=== PATIENT | female | born 1960 | race Caucasian/White ===

== ENCOUNTER 2022-02-05 20:57 | Emergency (ER) | payer MEDICAID, SELFPAY ==
[2022-02-05 22:18] VITALS: BP 126/93; PULSE 80; RESP 15; O2SAT 97
--- NOTE | 2022-02-05 23:10 | W.ED.GENAD ---
Discharge Plan Disposition Patient Disposition: Home Condition: Improving Discharge Details Clinical Impression: Abscess of back Primary Care Provider: Rupal,Local ED Provider: Miranda Hogan Home Meds and New Rx's Prescriptions: New sulfamethoxazole-trimethoprim [Bactrim DS] 800-160 mg tablet 2 tab PO BID 7 Days Qty: 28 0RF Discharge Instructions Instructions: Abscess (ED) Additional Instructions: You had incision and drainage of an abscess in your upper back this evening. This may have been a cyst that became secondarily infected with bacteria. A prescription for antibiotics has been sent electronically to your pharmacy to take as directed until finished. Alternate tylenol and motrin as needed and directed for pain. Drink plenty of fluids and get plenty of rest. Do not remove the packing and keep the area covered, clean and dry. Return to the emergency department in 2 days for wound check with packing removal or change. Follow-up with general surgery for reevaluation and consideration for cyst excision if applicable for definitive treatment. Referrals: Tila Fowler MD [ [facility] STAFF PHYSICIAN] - Discharge Data Discharge Physician: Miranda Hogan Medical Decision Making 61-year-old female presents with tender lump to her left upper back for the past 2 weeks. Vitals within normal limits. Pt appears comfortable and nontoxic. She has a 3 x 3 cm erythematous tender minimally fluctuant mass noted to the left of midline in the upper thoracic back. There is no drainage or surrounding crepitus. Suspect abscess. Will perform bedside ultrasound and likely I&D. Bedside ultrasound revealed fluid collection with loculations. The area was anesthetized with lidocaine 1% with epinephrine. Incision made in center of fluctuance with a #11 blade. Approximately 5 cc of purulent material expressed. Patient felt significantly better after drainage. Area was irrigated with normal saline. Able to pack area with a small amount of 1/4inch wide iodoform gauze as it is likely suspected to be the capsule of the cyst that became secondarily infected. Patient was given a dose of Bactrim here, and prescription sent electronically to her pharmacy. She was advised to return to the emergency department in 2 days for wound check with packing removal or change. She was also advised that she may need follow-up with general surgery for definitive cyst excision if this is applicable. Medical Records Medical records reviewed: Yes I reviewed the patient's medical records. HPI General Mode of arrival: ambulatory. Date/Time Provider Initiated Documentation: 02/05/22 21:31. Limitations to Documentation: no limitations. Information obtained by: patient. HPI Narrative: Patient is a 61-year-old female who presents with a lump noted on her back 2 weeks ago which has now developed pain in the area 1 week ago and redness that she noted this morning. She denies any known fever. She states she has been using black salve over the area to help with drainage. Related Data Home Medications Medication Instructions Recorded Confirmed sulfamethoxazole 800 2 tab PO BID 7 days #28 tabs 02/05/22 mg-trimethoprim 160 mg tablet (Bactrim DS) Previous Rx's Medication Instructions Recorded sulfamethoxazole 800 2 tab PO BID 7 days #28 tabs 02/05/22 mg-trimethoprim 160 mg tablet (Bactrim DS) General Stated Complaint: GenMedical MARK: 4 Review of Systems All systems reviewed & are unremarkable except as noted in HPI and below Constitutional Constitutional: Reports as per HPI, Denies chills and Denies fever(s) Eyes Eyes: Denies blurry vision ENT Ears, Nose, Mouth, and Throat: Denies dizziness, Denies sore throat and Denies throat swelling Cardiovascular Cardiovascular: Denies chest pain and Denies dyspnea Respiratory Respiratory: Denies cough and Denies dyspnea Gastrointestinal Gastrointestinal: Denies abdominal pain, Denies diarrhea and Denies vomiting Genitourinary Genitourinary: Denies hematuria and Denies dysuria Musculoskeletal Musculoskeletal: Denies back pain and Denies numbness Integumentary/Breasts Skin/Breast: Reports lesions and Denies rash Neurologic Neurologic: Denies dizziness, Denies localized weakness and Denies numbness Allergic/Immunologic Allergic/Immunologic: Denies throat swelling PFSH All Active Problems (Updated 02/05/22 @ 23:57 by Miranda Hogan DO) Abscess of back (Acute) Social History Smoking/Tobacco Use Status: Never Smoking risk assessment performed?: Yes Alcohol Intake: current Drug use: Never Substance use type: does not use Do you feel safe at home: Yes Do you feel safe in your relationship?: Yes Exam Const General: cooperative, healthy appearing and no acute distress HENMT Head: normal to inspection Mouth: oral mucosae normal Eyes General: appearance normal, both eyes and all related structures Neck Neck: normal visual inspection Resp Effort & Inspection: normal respiratory effort and able to speak in complete sentences Cardio Rate: regular rate Back/Spine/Pelvis Back/spine/pelvis image: 1. 3 x 3 cm erythematous fluctuant mass noted just to the left of midline and upper thoracic back and just below top border of scapula. There is no obvious drainage. There is no surrounding crepitus. Skin General skin exam: no rashes or lesions noted Neuro General: patient alert, patient awake and patient oriented x3 Motor: muscle tone normal throughout Extrem General: normal to inspection and full ROM Psych Appearance: grossly normal Affect: normal affect Course Vital Signs Vital signs: Vital Signs Pulse 80 02/05/22 22:18 Respiratory Rate 15 02/05/22 22:18 Blood Pressure 126/93 H 02/05/22 22:18 Pulse Oximetry 97 02/05/22 22:18 Pulse 80 02/05/22 22:18 Respiratory Rate 15 02/05/22 22:18 Blood Pressure 126/93 H 02/05/22 22:18 Blood Pressure Position Sitting 02/05/22 22:18 Pulse Oximetry 97 02/05/22 22:18 Oxygen Delivery Method Room Air 02/05/22 22:18 Oxygen Flow Rate 0 02/05/22 22:18 Pain Level 5 02/05/22 22:18 Procedures Abscess I/D Site: Back Side (if applicable): Left Local Anesthetic: Lidocaine 1% and With Epi Amount of anesthesia used (mL): 9 Technique: Incised with #11 Blade Amount of fluid expressed (mL): 10 Irrigation: Yes Packing used?: Iodoform
[2022-02-06 00:10] VITALS: TEMP 36.6
[2022-02-06 00:25] VITALS: PULSE 87; RESP 16; TEMP 36.6; O2SAT 98
[2022-02-06] MEDS: Sulfameth/Trimeth DS TAB 2 TAB PO (00:30)
[2022-02-06] MEDS: Ibuprofen 600 MG TAB PO (00:30)
[2022-02-06] MEDS: Sulfameth/Trimeth DS, 2 TABS/BTL 1 TAB PO (00:31)
== END 2022-02-06 00:34 | disposition home or self-care (01) ==
PROVIDERS: Emergency Provider Physician Assistant
DX: L02.818 Cutaneous abscess of other sites (principal)
CPT/HCPCS: 10061

== ENCOUNTER 2022-02-07 13:11 | Emergency (ER) | payer MEDICAID, SELFPAY ==
[2022-02-07 13:19] VITALS: BP 145/74; PULSE 86; RESP 18; TEMP 37; O2SAT 94
--- NOTE | 2022-02-07 13:46 | ED.GENADUL_ITS ---
Discharge Plan Disposition Patient Disposition: Home Condition: Stable Discharge Details Clinical Impression: Abscess of back Primary Care Provider: Rupal,Local ED Provider: Nazia Villalta Discharge Instructions Instructions: Abscess (ED) Additional Instructions: Warm compresses Follow-up with surgery should he have recurrence of symptoms Complete your antibiotic course Return spreading redness, fever, worsening pain Wash with warm soapy water at least once daily You may massage the wound when you exit the shower and place a gauze dressing Referrals: Virgil Guzman MD [ [facility] STAFF PHYSICIAN] - Discharge Data Discharge Date/Time-TO BE ENTERED AT DEPARTURE: 02/07/22 13:57 Medical Decision Making 62-year-old female presents for abscess recheck and packing removal Wound draining well, wick removed without incident Will continue on antibiotics Referral to surgery in the outpatient setting Return precautions reviewed and patient expressed understanding Medical Records Medical records reviewed: Yes I reviewed the patient's medical records. HPI General Date/Time Provider Initiated Documentation: 02/07/22 13:36 . HPI Narrative: This 62-year-old female is otherwise reportedly healthy presents with cyst on upper back measuring 2 days ago. She was asked to return for reevaluation which is why she presents. Reports decreased pain. Denies any fever or chills. Take antibiotic as prescribed General Stated Complaint: Cellulitis MARK: 4 Review of Systems Narrative: Review of systems obtained x3 and negative aside from medication HPI PFSH All Active Problems (Updated 02/07/22 @ 13:47 by BEAU Ivan) Abscess of back (Acute) Social History Smoking/Tobacco Use Status: Current every day Tobacco Type: cigarettes Smoking risk assessment performed?: Yes Alcohol Intake: never Drug use: Never Substance use type: does not use Do you feel safe at home: Yes Do you feel safe in your relationship?: Yes Exam Skin Full body images: 1. Site of abscess drainage, no fluctuance, site draining purulent material, mild surrounding erythema, approximately half an inch Course Vital Signs Vital signs: Vital Signs Temperature 37.0 C 02/07/22 13:19 Pulse 86 02/07/22 13:19 Respiratory Rate 18 02/07/22 13:19 Blood Pressure 145/74 H 02/07/22 13:19 Pulse Oximetry 94 02/07/22 13:19 Temperature 37.0 C 02/07/22 13:19 Temperature Source Temporal Artery Scan 02/07/22 13:19 Pulse 86 02/07/22 13:19 Respiratory Rate 18 02/07/22 13:19 Respiratory Effort Non-Labored 02/07/22 13:22 Blood Pressure 145/74 H 02/07/22 13:19 Blood Pressure Position Sitting 02/07/22 13:19 Pulse Oximetry 94 02/07/22 13:19
== END 2022-02-07 13:57 | disposition home or self-care (01) ==
PROVIDERS: Emergency Provider Physician Assistant
DX: L02.212 Cutaneous abscess of back [any part, except buttock and flank] (principal)

== ENCOUNTER 2022-03-22 13:27 | Outpatient (REF) | payer MEDICAID, SELFPAY ==
--- OUTSIDE RECORDS SUMMARY | 2022-03-22 13:29 | XMS_ITS | CCD ---
:1960 Author Care Team Providers Name Role Phone LUIS PAYNE Attending Physician Unavailable LUIS PAYNE Rounding (Secondary) Physician Unavailab le Vital Signs Unknown or Not Available. Allergies Unknown or Not Available. Procedures Unknown or Not Available. History of Immunizations Unknown or Not Available. Problems Unknown or Not Available. Results Unknown or Not Available. Active Medications Unknown or Not Available. Medications Administered During Visit Unknown or Not Available. Encounters Encounter Diagnosis Diagnosis Code Start Date Pain in left hip [id number] 10/29/2021 Social History Unknown or Not Available. Patient Decision Aids Unknown or Not Available. Discharge Instructions You were admitted to [facility] on 10/29/2021 08:53 with a principal diagnosis of Pain in left hip You were discharged from [facility] on 10/29/2021 13:51 Should you have any questions prior to d ischarge, please contact a member of your healthcare team. If you have left the spital and have any questions, please contact your primary care physician. Chief Complaint and Reason For Visit Unknown or Not Available. Function Status Unknown or Not Available. Plan of Care Unknown or Not Available. Referral/Transition of Care Unknown or Not Available.
== END 2022-03-22 13:28 | disposition home or self-care (01) ==
LOC: LBN 13:27
PROVIDERS: Visit Provider Physician Assistant
DX: N39.0 Urinary tract infection, site not specified (principal)
CPT/HCPCS: 87086

== ENCOUNTER 2022-05-22 02:22 | Outpatient (CLI) | payer MEDICAID, SELFPAY ==
[2022-05-22 09:52] LABS: CREATININE 0.8 mg/dL (0.55-1.02); Estimated GFR 82.23 (mL/min/1.73m2)
== END 2022-05-22 02:23 | disposition home or self-care (01) ==
PROVIDERS: Visit Provider Occupational Therapist
DX: I67.1 Cerebral aneurysm, nonruptured (principal)
CPT/HCPCS: 36415; 82565

== ENCOUNTER 2022-05-22 13:19 | Outpatient (REF) | payer MEDICAID, SELFPAY ==
[2022-05-26 10:10] LABS: Anabasine <2.0 ng/mL (<2.0); Cotinine <5.0 ng/mL (<5.0); Nicotine <5.0 ng/mL (<5.0); Nornicotine <2.0 ng/mL (<2.0)
== END 2022-05-22 13:20 | disposition home or self-care (01) ==
LOC: LBN 13:19
PROVIDERS: Visit Provider Orthopaedic Surgery
DX: Z87.891 Personal history of nicotine dependence (principal)
CPT/HCPCS: 80323

== ENCOUNTER 2022-10-21 19:21 | Emergency (ER) | payer MEDICAID, SELFPAY ==
[2022-10-21 19:38] VITALS: BP 154/102; PULSE 94; RESP 20; TEMP 36.8; O2SAT 99
--- NOTE | 2022-10-21 20:00 | DI.CT_ITS ---
Exam(s) CT LUMBAR SPINE WO EXAM: CT LUMBAR SPINE WO CLINICAL HISTORY: left lower back pain, eval for disc pathology. TECHNIQUE: Imaging Protocol: Axial computed tomography images with coronal and sagittal reformatted images were created and reviewed COMPARISON: No exams were available for comparison FINDINGS: Bones: The last intervertebral disc space is designated the L5/S1 level for the numbering purpose of this examination. The vertebral body heights are well maintained. Alignment is satisfactory. No fracture is seen. No lytic or blastic lesion. T12-L1: No disc herniations or bulges are present. L1-2: No disc herniations or bulges are present. L2-3: No disc herniations or bulges are present. L3-4: Mild disc bulging L4-5: Mild loss of disc height. Concentric disc bulging. Facet degenerative changes cause mild spo ndylolisthesis. There is ligamentous hypertrophy which combines with the disc bulging to produce mod erate to severe central canal stenosis and bilateral neural foraminal narrowing. L5-S1: No disc herniations or bulges are present. The visualized SI joints and sacrum are will maintained. Left hip prosthesis. Moderate degenerative changes of right hip. Soft Tissues: The paraspinal soft tissues are unremarkable. Large amount of stool seen in the rect um. At aorta normal in diameter. Mild atherosclerotic changes. IMPRESSION: Degenerative disc changes and facet degenerative changes cause mild spondylo listhesis at L4-5 as wel l as moderate to severe central canal stenosis and bilateral neural foraminal narrowing. RADIATION DOSE DELIVERED: 919.02mGy.cm Total DLP DATA REPOSITORY: All CT scans at this facility are submitted to the National Radiology Data Registry (NRDR) Dose Index Registry (DIR) with the [employer] (A[employer]). RADIATION OPTIMIZATION: All CT scans at this facility use at least one of these dose optimization te chniques: automated exposure control; mA and/or kV adjustment per patient size (includes targeted exa ms where dose is matched to clinical indication); or iterative reconstruction.
--- NOTE | 2022-10-21 21:35 | ED.GENADUL_ITS ---
Discharge Plan Disposition Patient Disposition: Home Condition: Good Discharge Details Clinical Impression: Radiculopathy Primary Care Provider: Unknown,Unknown ED Provider: Steve Banks Home Meds and New Rx's Prescriptions: New lidocaine [Lidoderm] 5 % adhesive patch,medicated 1 patch Topical Q24H Qty: 15 0RF prednisone 50 mg tablet 50 mg PO DAILY Qty: 5 0RF No Action ascorbate calcium (vitamin C) 500 mg tablet 500 mg PO BID bergamot extract 500 mg capsule 2 mg PO DAILY Discharge Instructions Instructions: Lumbar Radiculopathy (ED) Additional Instructions: At this time your CAT scan shows evidence of disc breakdown, and slight narrowing of the space around your nerves. Please take the steroid as directed. Please take Tylenol and Motrin as needed for pain. If you notice any worsening of your symptoms, or any new symptoms such as vomiting, diarrhea, fever, chills, shortness of breath, chest pain, numbness, weakness, or fainting , please return immediately to the emergency department for reevaluation. Please follow up with your primary care provider as soon as possible for reassessment and reevaluation. As always, it was a pleasure participating in your medical care today. Medical Decision Making 62-year-old female with a past medical history of hip replacement who presents today for evaluation of left lower back pain for the last 3 weeks. She suspects that it was initially brought on after she did some extra work or heavy lifting outside. She denies falls or trauma. She denies fever and chills. She states that the pain is in her left lower back, and that radiates down her leg. It is worse with bending. Improved by rest. She has been slower in general secondary to her previous hip replacement, but this is different. She denies f ever or chills. Patient denies any saddle anesthesia, numbness or tingling in the groin, change in sensation when wiping. Patient denies any change in sensation during sexual intercourse, bowel or bladder incontinence, leakage, or retention. Patient denies any weakness in the lower extremities, atypical falls or imbalance. Exam demonstrates well-appearing female. Hip and back show no redness warmth or abnormality otherwise. No midline cervical thoracic lumbar spine tenderness. Normal sensation throughout, no saddle anesthesia. No bowel or bladder incontinence. Symptoms appear clinically inconsistent with cauda equina syndrome. Symptoms appear clinically concerning for mild radiculopathy versus sciatica versus piriformis syndrome. We will get a CT scan to evaluate for disc pathology, monitor closely and reassess. 10:[address] imaging has returned, there is moderate to severe central canal stenosis at L4-L5 and moderate foraminal stenosis as well as some constipation. No evidence of cauda equina syndrome clinically. Patient otherwise feels well. Stable for discharge. We will do a prednisone burst, and recommend continued NSAIDs and Lidoderm patch. Discussed red flags for which to return. I have extensively reviewed the treatment plan and discharge instructions with the patient. I have addressed all patient concerns at this time. The patient was made aware of what symptoms to monitor for that would warrant a return to the emergency department. Discussed the plan with the patient, they demonstrate verbal understanding and agreement with our assessment and plan at this time. The documentation in this chart was dictated using eMagin dictation software. Please excuse any dictation errors. FINDINGS: Bones/joints: No acute fracture. Mild anterolisthesis of L4 on L5 is presumed degenerative Uncovering of the intervertebral disc at L4-L5 combines with facet hypertrophic changes producing moderate to severe central canal stenosis and moderate foraminal stenosis Left hip arthroplasty noted. Moderate degenerative changes in the right hip Soft tissues: Unremarkable. Large stool in the rectal vault IMPRESSION: Moderate to severe central canal stenosis at L4-L5 and moderate foraminal stenosis Question constipation Thank you for allowing us to participate in the care of your patient. HPI General Date/Time Provider Initiated Documentation: 10/21/22 20:11 . HPI Narrative: 62-year-old female with a past medical history of hip replacement who presents today for evaluation of left lower back pain for the last 3 weeks. She suspects that it was initially brought on after she did some extra work or heavy lifting outside. She denies falls or trauma. She denies fever and chills. She states that the pain is in her left lower back, and that radiates down her leg. It is worse with bending. Improved by rest. She has been slower in general secondary to her previous hip replacement, but this is different. She denies fever or chills. Patient denies any saddle anesthesia, numbness or tingling in the groin, change in sensation when wiping. Patient denies any change in sensation during sexual intercourse, bowel or bladder incontinence, leakage, or retention. Patient denies any weakness in the lower extremities, atypical falls or imbalance. Related Data Home Medications Medication Instructions Recorded Confirmed ascorbate calcium (vitamin C) 500 500 mg PO BID 02/26/22 10/21/22 mg tablet bergamot extract 500 mg capsule 2 mg PO DAILY 02/26/22 10/21/22 lidocaine 5 % topical patch 1 patch topical Q24H #15 ea 10/21/22 (Lidoderm) prednisone 50 mg tablet 50 mg PO DAILY #5 tabs 10/21/22 Previous Rx's Medication Instructions Recorded lidocaine 5 % topical patch 1 patch topical Q24H #15 ea 10/21/22 (Lidoderm) prednisone 50 mg tablet 50 mg PO DAILY #5 tabs 10/21/22 Allergies Allergy/AdvReac Type Severity Reaction Status Date / Time codeine Allergy Intermediate itchy rash Verified 10/21/22 19:42 oxycodone Allergy Intermediate Uncoded 10/21/22 19:42 General Stated Complaint: Orthopedic MARK: 4 Review of Systems All systems reviewed & are unremarkable except as noted in HPI and below PFSH All Active Problems (Updated 10/21/22 @ 22:00 by Steve Banks DO) Radiculopathy (Acute) Social History Smoking/Tobacco Use Status: Current every day Tobacco Type: cigarettes Smoking risk assessment performed?: Yes Alcohol Intake: never Drug use: Never Substance use type: does not use Current gender identity: female Do you feel safe at home: Yes Do you feel safe in your relationship?: Yes Exam Narrative Exam Narrative: 1.Const: Well-nourished, Well-developed, appearing stated age 2.Eyes: PERRL, no conjunctival injection, and symmetrical lids. 3.ENT: Atraumatic external nose and ears. Moist MM. Neck: Symmetric, trachea midline, No thyromegaly. 4.CVS: +S1/S2, No murmurs or gallops. Peripheral pulses 2+ and equal in all extremities. Brisk capillary refill in all extremities. 5.RESP: Unlabored respiratory effort. Clear to auscultation bilaterally. No wheezes rales or rhonchi 6.GI: Soft, Nontender/Nondistended, No hepatosplenomegaly. No guarding or rebound. 7.MSK: Normocephalic/Atraumatic, Extremities w/o deformity or ttp No cyanosis or clubbing, Normal movement of all extremities No midline tenderness to palpation over the CTLS spine. Normal ROM in flexion, extension, side bend, and rotation. Patient has +5 out of 5 strength in the lower extremities in dorsiflexion and plantarflexion, knee flexion and extension, hip flexion and extension. Normal strength for dorsiflexion and plantar flexion of the great toe bilaterally. There is +2 over 2 dorsalis pedis pulses bilaterally. There is normal sensation to the skin with light touch at the foot, knee, and hip. Normal saddle sensation. Good sensation over the deep sural nerve area bilaterally. Rectal exam demonstrates good rectal tone with excellent colton-rectal sensation. Reflexes are +2 over 4 in the patellar reflex bilaterally. +5 out of 5 strength in the medial, ulnar, radial nerve distribution bilaterally in the hands as well as intact light touch sensation to these dermatomes on the hands 8.Skin: Warm, Dry. No rashes or lesions. 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 Sensation grossly intact, no focal neurologi c deficits. 10.Psych: (AAO) x3. Appropriate mood and affect Course Vital Signs Vital signs: Vital Signs Temperature 36.8 C 10/21/22 19:38 Pulse 94 H 10/21/22 19:38 Respiratory Rate 20 10/21/22 19:38 Blood Pressure 154/102 H 10/21/22 19:38 Pulse Oximetry 99 10/21/22 19:38 Temperature 36.8 C 10/21/22 19:38 Temperature Source Oral 10/21/22 19:38 Pulse 94 H 10/21/22 19:38 Respiratory Rate 20 10/21/22 19:38 Respiratory Effort Normal 10/21/22 19:43 Blood Pressure 154/102 H 10/21/22 19:38 Blood Pressure Position Sitting 10/21/22 19:38 Pulse Oximetry 99 10/21/22 19:38 Oxygen Delivery Method Room Air 10/21/22 19:38 Oxygen Flow Rate 0 10/21/22 19:38 Pain Level 7 10/21/22 19:38
--- NOTE | 2022-10-21 21:56 | DI.VRAD_ITS ---
PROCEDURE INFORMATION: Exam: CT Lumbar Spine Without Contrast Exam date and time: 10/21/2022 9:28 PM Age: 62 years old Clinical indication: Low back pain TECHNIQUE: Imaging protocol: Computed tomography of the lumbar spine without contrast. COMPARISON: No relevant prior studies available. FINDINGS: Bones/joints: No acute fracture. Mild anterolisthesis of L4 on L5 is presumed degenerative Uncovering of the intervertebral disc at L4-L5 combines with facet hypertrophic changes producing moderate to severe central canal stenosis and moderate foraminal stenosis Left hip arthroplasty noted. Moderate degenerative changes in the right hip Soft tissues: Unremarkable. Large stool in the rectal vault IMPRESSION: Moderate to severe central canal stenosis at L4-L5 and moderate foraminal stenosis Question constipation Dictated and Authenticated by: Finesse Mireles MD. Ordering:NICK Wilson MD
[2022-10-21] MEDS: Ketorolac 30 MG/ML VIAL IM (22:09)
[2022-10-21] MEDS: predniSONE 20 MG TAB 60 MG PO (22:09)
[2022-10-21] MEDS: Lidocaine 5% Patch 1 PATCH TP (22:10)
== END 2022-10-21 22:16 | disposition home or self-care (01) ==
PROVIDERS: Emergency Provider Student in an Organized Health Care Education/Training Program
DX: M54.16 Radiculopathy, lumbar region (principal); M48.061 Spinal stenosis, lumbar region without neurogenic claudication; K59.00 Constipation, unspecified; Z96.642 Presence of left artificial hip joint; X50.9XXA Other and unspecified overexertion or strenuous movements or postures, initial encounter; F17.210 Nicotine dependence, cigarettes, uncomplicated
CPT/HCPCS: 96372; 99284; 72131; 99283; J1885; J7512

== ENCOUNTER 2022-12-04 01:10 | Outpatient (CLI) | payer MEDICAID, SELFPAY ==
[2022-12-04 10:09] LABS: Calculated LDL 178 mg/dL (<100); Cholesterol 281 mg/dL (<200); Glucose 153 mg/dL (74-106); HDL Cholesterol 70 mg/dL (40-60); Triglyceride 165 mg/dL (<150)
[2022-12-08 10:12] LABS: Insulin 11.5 uIU/mL (<29.0)
== END 2022-12-04 01:11 | disposition home or self-care (01) ==
LOC: LBO 01:11
PROVIDERS: Visit Provider Naturopath
DX: E88.810 Metabolic syndrome (principal); E78.00 Pure hypercholesterolemia, unspecified
CPT/HCPCS: 36415; 80061; 82947; 83525

== ENCOUNTER 2022-12-10 10:50 | Outpatient (CLI) | payer MEDICAID, SELFPAY ==
[2022-12-10 15:52] LABS: D-Dimer 1147 ng/mlFEU (<500)
== END 2022-12-10 10:51 | disposition home or self-care (01) ==
LOC: LBO 10:50
PROVIDERS: Visit Provider Naturopath
DX: T14.8XXA Other injury of unspecified body region, initial encounter (principal)
CPT/HCPCS: 36415; 85379

== ENCOUNTER 2022-12-12 12:25 | Emergency (ER) | payer MEDICAID, SELFPAY ==
[2022-12-12] VITALS (13 sets, daily range): BP systolic 147–150; BP diastolic 71–75; PULSE 88–112; RESP 11–28; O2SAT 93–97
--- NOTE | 2022-12-12 12:30 | RT.EKG_ITS ---
APPROVED REPORT Exam: Resting ECG Reason for Exam: Elevated D Dimer Patient Location: E HR:102 bpm ECG Measurements Heart Rate 102 AXIS VA 168 P 37 QRSd 108 QRS -55 QT 359 T 75 QTc 468 Conclusion Sinus tachycardia...rate> 99 Left anterior fascicular block...axis(240,-40), init forces inf Left ventricular hypertrophy...multiple voltage criteria ST elevation, consider inferior injury...ST >0.08mV, II III aVF
--- NOTE | 2022-12-12 12:33 | ED.GENADUL_ITS ---
Discharge Plan Disposition Patient Disposition: Home Condition: Improving Discharge Details Clinical Impression: BURTON (dyspnea on exertion) Primary Care Provider: Unknown,Unknown ED Provider: Donte Molina Meds and New Rx's Prescriptions: Continued ascorbate calcium (vitamin C) 500 mg tablet 500 mg PO BID bergamot extract 500 mg capsule 2 mg PO DAILY Curcumin 95 % powder miscellaneous cholecalciferol (vitamin D3) 50 mcg (2,000 unit) capsule 50 mcg PO DAILY nottokinase plus PO BID glucosamine sulfate [Glucosamine] 500 mg tablet 500 mg PO BID Rx Instructions: administer with meals magnesium 200 mg tablet 200 mg PO BID Discharge Instructions Instructions: Dyspnea (ED) Referrals: Anya Rodriguez [Emergency Nurse] - 1 week Discharge Data Discharge Physician: Donte Molina Medical Decision Making MDM: Summary: Patient presents to the emergency department sent by her primary care physician for she had a positive D-dimer and she had a left hip replacement 6 months ago and he was concerned. She reports mild shortness of breath no chest pain. Patient had a labs done which were normal POCUS ultrasound echocardiography does not show any biventricular strain and a CT PE study which shows no pulmonary embolus. This time the D-dimer is a false positive for she does not have any pulmonary embolus. Probably she is deconditioned from not able to exercise since she had a hip replacement Data Review Analysis All the data on this patient was reviewed by me including laboratory and imaging studies as well as bedside studies performed by me Independent review of Studies Imaging CT PE study negative and POCUS exam echocardiography negative Lab: Labs unremarkable Risk Stratification: Patient had a positive D-dimer and had had a hip replacement this department physician sent her here for rule out PE which was ruled out after CT angiogram. Differential Diagnosis: 1. Deconditioning 2. Dyspnea 3. Pulmonary embolus 4. 5. Consultants: Shared disposition: Patient understands her disposition she has agreed and is relieved that she does not have pulmonary embolus. Impression: Medical Records Medical records reviewed: Yes I reviewed the patient's medical records. ECG Data Attestation: I personally reviewed and interpreted this ECG (s) as follows: Prior ECG tracings: available for review Interpretation: Heart rate 102 sinus tachycardia left anterior fascicular block low ventricular hypertrophy no acute ST-T changes HPI General Date/Time Provider Initiated Documentation: 12/12/22 12:33 . HPI Narrative: Patient presents emergency department complaining of mild shortness of breath that started about a week ago. She went to her primary who did a D-dimer was positive and was sent here for evaluation. Denies any fever denies any chills denies any cough denies any lower extremity swelling. She is does state that 6 months ago she had a hip replacement and was placed only on aspirin. Related Data Home Medications Medication Instructions Recorded Confirmed ascorbate calcium (vitamin C) 500 500 mg PO BID 02/26/22 12/12/22 mg tablet bergamot extract 500 mg capsule 2 mg PO DAILY 02/26/22 12/12/22 cholecalciferol (vitamin D3) 50 50 mcg PO DAILY 12/12/22 12/12/22 mcg (2,000 unit) capsule glucosamine sulfate 500 mg tablet 500 mg PO BID 12/12/22 12/12/22 (Glucosamine) magnesium 200 mg tablet 200 mg PO BID 12/12/22 12/12/22 nottokinase plus PO BID 12/12/22 turmeric (bulk) 95 % powder pwd miscellaneous 12/12/22 (Curcumin) Allergies Allergy/AdvReac Type Severity Reaction Status Date / Time codeine Allergy Intermediate itchy rash Verified 12/12/22 12:37 oxycodone Allergy Intermediate Uncoded 12/12/22 12:37 General MARK: 4 Review of Systems Narrative: Review of Systems: Constitutional: No fevers, chills, sweats Eye: No recent visual problems ENT: No ear pain, nasal congestion, sore throat Respiratory: No shortness of breath, cough Cardiovascular: No Chest pain, palpitations, syncope Gastrointestinal: No nausea, vomiting, diarrhea Genitourinary: No hematuria Rafael/Lymph: Negative for bruising tendency, swollen lymph glands Endocrine: Negative for excessive thirst, excessive hunger Musculoskeletal: No back pain, neck pain, joint pain, muscle pain, decreased range of motion Integumentary: No rash, pruritus, abrasions Neurologic: Alert & oriented X 4 Psychiatric: No anxiety, depression PFSH All Active Problems (Updated 12/12/22 @ 16:47 by Donte Molina MD) BURTON (dyspnea on exertion) (Acute) Social History Smoking/Tobacco Use Status: Current every day Tobacco Type: cigarettes Smoking risk assessment performed?: Yes Alcohol Intake: never Drug use: Daily Substance use type: marijuana Current gender identity: female Do you feel safe at home: Yes Do you feel safe in your relationship?: Yes Exam Narrative Exam Narrative: Exam; vitals signs as reported above normal Constitutional; In no acute distress, afebrile General: cooperative, healthy appearing, comfortable and no acute distress HEENT: Head: normal to inspection, no palpable skull fracture and normocephalic atraumatic Eyes: : appearance normal, both eyes and all related structures EOM intact bilaterally Pupils: PERRL : conjunctiva normal Direct ophthalmoscopy: normal light reflex, normal conjunctiva, normal visual acuity Ears: Normal TM, normal external canal Nose: normal no rhinorreha Neck no JVD, supple non tender Neck: normal visual inspection, full ROM and no lymphadenopathy Chest: normal inspection of the chest Respiratory : normal respiratory effort and able to speak in complete sentences no wheezing no rales Cardio Rate: regular rate, rhythm: regular rhythm normal heart sounds S1 and S2 no murmurs, gallops, or rubs GI : normal to inspection, normal bowel sounds, soft, non tender, non distended, no organomegaly Back/Spine/ no CVA tenderness Thoracic/Lumbar Spine: no tenderness or deformities Skin no rashes or lesions Neuro: patient alert oriented x 4 and no meningeal signs, Cranial Nerves: CN's II-XI intact bilaterally, Cognition: normal cognition, Speech: speech normal, Gait: normal gait, Depp tendon reflexes normal 2+ muscle strength 5/5 bilaterally Extremities, no edema, full range of motion, normal strength POCUS Exam (ED) Limited Cardiac Exam DATE OF EXAM: 12/12/22 TIME OF EXAM: 03:00 PROVIDER THAT PERFORMED THE STUDY: Donte Molina REASON FOR EXAM: Chest pain and Dyspnea VISUALIZED STRUCTURES: Four Chambers, Left atrium, Left ventricle, LVOT, Right atrium, Right ventricle, Aortic valve, Mitral valve, Interventricular septum and IVC VIEW OBTAINED: Apical 4-Chamber, Parasternal long-axis, Parasternal short-axis and Subxiphoid PERTINENT FINDINGS/IMPRESSION: No apparent abnormalities Exam complete
--- NOTE | 2022-12-12 12:45 | DI.CT_ITS ---
Exam(s) CT CHEST PE CTA EXAM: CT CHEST PE CTA CLINICAL HISTORY: chest pain, dyspnea, tachycardia. TECHNIQUE: Imaging Protocol: Axial CT angiography was performed with multi-slice acquisition and mu lti-planar and/or 3D reconstructions. CONTRAST MATERIAL: Intravenous: Omnipaque 350 contrast volume:90 mL COMPARISON: No exams were available for comparison FINDINGS: There is poor inspiration. Tracheobronchial tree: Patent where visualized. Pulmonary parenchyma: Atelectatic changes are seen in the lungs. No focal consolidating infiltrates are present. Pulmonary Arteries: No evidence of filling defect to suggest pulmonary emboli. Mediastinum and Carolyn: No dominant adenopathy or fluid collection. The esophagus is unremarkable. Visualized thyroid gland: Unremarkable. Pleura: No effusion or pneumothorax. Heart: The heart is not dilated. No coronary artery calcifications are seen. No pericardial effusion. Aorta: Thoracic aorta non-dilated. No evidence of dissection. Atherosclerosis. Upper abdomen: Unremarkable. Soft tissues: Unremarkable. Bones: Within normal limits for the patient's age. IMPRESSION: 1. No evidence of pulmonary embolism, thoracic aortic dissection or aneurysm. 2. Findings were discussed with the emergency department at 4:29 p.m. on 12/12/2022. RADIATION DOSE DELIVERED: Total DLP DATA REPOSITORY: All CT scans at this facility are submitted to the National Radiology Data Registry (NRDR) Dose Index Registry (DIR) with the [employer] (ACR). RADIATION OPTIMIZATION: All CT scans at this facility use at least one of these dose optimization te chniques: automated exposure control; mA and/or kV adjustment per patient size (includes targeted exa ms where dose is matched to clinical indication); or iterative reconstruction.
[2022-12-12 13:17] LABS: Abs Immature Grans 0.04 10^3/uL (0.0-0.06); Absolute Basophil Count 0.11 10^3/uL (0.0-0.2); Basophils % 0.9; Eosinophils % 1.7; HCT 46.7 % (36.0-46.0); HGB 15.6 g/dL (11.2-15.7); Immature Grans % 0.3; Lymphocytes % 19.9; MCH 29.8 pg (27.0-33.0); MCHC 33.4 % (32.0-36.0); MCV 89 fL (80-95); MPV 11.2 fL (8.0-11.0); Monocytes % 6.7; Neutrophils % 70.5; Platelet Count 254 10^3/uL (130-400); RBC 5.24 10^6/uL (3.93-5.22); RDW 12.9 % (11.7-14.6); RDW-SD 42.1 fL; WBC 11.93 10^3/uL (4.4-10.8)
[2022-12-12 13:18] LABS: Absolute Lymphocyte Count 2.37 10^3/uL (1.2-3.4); Absolute Neutrophil Count 8.41 10^3/uL (1.2-6.7)
[2022-12-12 13:23] LABS: Prothrombin Time 10.2 sec (9.1-11.1)
[2022-12-12 13:43] LABS: ALT 34 U/L (14-59); AST 19 U/L (15-37); Albumin 3.6 g/dL (3.4-5.0); Alkaline Phosphatase 111 U/L (46-116); Anion Gap 7.4 mmol/L (3-11); BUN 20 mg/dL (7-18); Bilirubin, Total 0.2 mg/dL (0.2-1.0); CO2 27.6 mmol/L (21.0-32.0); CREATININE 0.9 mg/dL (0.55-1.02); Calcium 9.7 mg/dL (8.5-10.1); Chloride 102 mmol/L (98-107); Estimated GFR 71.39 (mL/min/1.73m2); Glucose 153 mg/dL (74-106); Potassium 4.2 mmol/L (3.5-5.1); Sodium 137 mmol/L (136-145); Total Protein 7.7 g/dL (6.4-8.2)
[2022-12-12] MEDS: Omnipaque 350 MG/ML 100 ML BTL IJ (15:38)
[2022-12-12] MEDS: Normal Saline - Diluent 50 ML VIAL IJ (15:42)
== END 2022-12-12 16:56 | disposition home or self-care (01) ==
PROVIDERS: Emergency Provider Emergency Medicine Emergency Medical Services
DX: R06.09 Other forms of dyspnea (principal)
CPT/HCPCS: 36415; 71275; 80053; 93005; 93308; 99285; 85025; 85610; 93010; 99284; J3490

== ENCOUNTER 2023-01-19 03:33 | Outpatient (CLI) | payer MEDICAID, SELFPAY ==
[2023-01-19 09:49] LABS: Abs Immature Grans 0.03 10^3/uL (0.0-0.06); Absolute Basophil Count 0.14 10^3/uL (0.0-0.2); Absolute Eosinophil Count 0.33 10^3/uL (0.0-0.7); Absolute Lymphocyte Count 2.04 10^3/uL (1.2-3.4); Absolute Monocyte Count 0.62 10^3/uL (0.1-0.8); Absolute Neutrophil Count 6.07 10^3/uL (1.2-6.7); Basophils % 1.5; Eosinophils % 3.6; HCT 48.1 % (36.0-46.0); HGB 15.6 g/dL (11.2-15.7); Immature Grans % 0.3; Lymphocytes % 22.1; MCH 29.8 pg (27.0-33.0); MCHC 32.4 % (32.0-36.0); MCV 92 fL (80-95); MPV 11.1 fL (8.0-11.0); Monocytes % 6.7; Neutrophils % 65.8; Platelet Count 234 10^3/uL (130-400); RBC 5.24 10^6/uL (3.93-5.22); WBC 9.23 10^3/uL (4.4-10.8)
== END 2023-01-19 03:34 | disposition home or self-care (01) ==
LOC: LBO 03:33
PROVIDERS: Visit Provider Naturopath
DX: T14.8XXA Other injury of unspecified body region, initial encounter (principal)
CPT/HCPCS: 36415; 85025

== ENCOUNTER 2023-02-13 14:27 | Emergency (ER) | payer MEDICARE, MEDICAID, SELFPAY ==
[2023-02-13] VITALS (16 sets, daily range): BP systolic 151–179; BP diastolic 86–101; PULSE 91–105; RESP 11–25; TEMP 36.4; O2SAT 94–99
--- NOTE | 2023-02-13 14:30 | DI.CT_ITS ---
Exam(s) CT CHEST PE CTA EXAM: CT CHEST PE CTA CLINICAL HISTORY: elevated ddimer, syncope. TECHNIQUE: Imaging Protocol: CT angiography of the chest was performed using pulmonary embolus ruby col. Multi planar reconstructions were performed. CONTRAST MATERIAL: Intravenous: Omnipaque 350 Contrast volume: 100 cc COMPARISON: CT CT CHEST PE CTA from 12/12/2022 FINDINGS: CHEST: PULMONARY ARTERIES: There are no intraluminal filling defects to suggest acute pulmonary emboli. LUNGS: There are no infiltrates nor evidence of pulmonary infarction.. no infiltrates. no significan t lung nodules. MEDIASTINUM: There is no hilar nor mediastinal adenopathy. Visualized thyroid unremarkable. CARDIAC: Heart size normal. No pericardial effusion.Caliber of the thoracic aorta is within normal l imits. No evidence of aortic dissection. There is no significant shift of the interventricular septu m. PARTIALLY VISUALIZED UPPERMOST ABDOMEN: No obvious findings OSSEOUS: No significant osseous lesions.. IMPRESSION: 1. No evidence of acute pulmonary emboli. No evidence of pulmonary infarction.No pleural effusions. 2. No evidence of aortic dissection nor pericardial effusion. 3. No acute pulmonary findings. Report called by myself to ER physician RADIATION DOSE DELIVERED: Total DLP DATA REPOSITORY: All CT scans at this facility are submitted to the National Radiology Data Registry (NRDR) Dose Index Registry (DIR) with the [employer] (ACR). RADIATION OPTIMIZATION: All CT scans at this facility use at least one of these dose optimization te chniques: automated exposure control; mA and/or kV adjustment per patient size (includes targeted exa ms where dose is matched to clinical indication); or iterative reconstruction.
--- NOTE | 2023-02-13 14:30 | RT.EKG_ITS ---
APPROVED REPORT Exam: Resting ECG Reason for Exam: Elevated D-Dimer Patient Location: E HR:95 bpm ECG Measurements Heart Rate 95 AXIS [place] 255 P -4 QRSd 103 QRS -35 QT 363 T 44 QTc 463 Conclusion Sinus rhythm...normal P axis, V-rate 60- 99 Ventricular premature complex...V complex w/ short R-R interval Prolonged NY interval...NY >215, V-rate 91-120 Left ventricular hypertrophy...multiple LVH criteria
[2023-02-13 15:09] LABS: Abs Immature Grans 0.03 10^3/uL (0.0-0.06); Absolute Basophil Count 0.13 10^3/uL (0.0-0.2); Absolute Eosinophil Count 0.74 10^3/uL (0.0-0.7); Absolute Lymphocyte Count 2.41 10^3/uL (1.2-3.4); Absolute Monocyte Count 0.66 10^3/uL (0.1-0.8); Absolute Neutrophil Count 6.89 10^3/uL (1.2-6.7); Basophils % 1.2; Eosinophils % 6.8; HGB 14.2 g/dL (11.2-15.7); Immature Grans % 0.3; Lymphocytes % 22.2; MCH 29.8 pg (27.0-33.0); MCV 90 fL (80-95); MPV 10.1 fL (8.0-11.0); Monocytes % 6.1; Neutrophils % 63.4; Platelet Count 420 10^3/uL (130-400); RBC 4.77 10^6/uL (3.93-5.22); RDW 12.8 % (11.7-14.6); RDW-SD 42.6 fL; WBC 10.86 10^3/uL (4.4-10.8)
--- NOTE | 2023-02-13 15:10 | ED.GENADUL_ITS ---
Discharge Plan Discharge Details Chief Complaint: GenMedical Primary Care Provider: Unknown,Unknown ED Provider: Lev Talavera Home Meds and New Rx's Prescriptions: No Action ascorbate calcium (vitamin C) 500 mg tablet 500 mg PO BID bergamot extract 500 mg capsule 2 mg PO DAILY Hold Instructions: on hold due to recent surgery Curcumin 95 % powder miscellaneous cholecalciferol (vitamin D3) 50 mcg (2,000 unit) capsule 50 mcg PO DAILY nottokinase plus PO BID glucosamine sulfate [Glucosamine] 500 mg tablet 500 mg PO BID Rx Instructions: administer with meals magnesium 200 mg tablet 200 mg PO BID acetaminophen 325 mg tablet 975 mg PO TID PRN Patient Comments: TAKE THREE TABLETS BY MOUTH EVERY 8 HOURS NEEDED FOR PAIN hydromorphone 2 mg tablet 2 mg PO Q8H PRN Patient Comments: TAKE ONE TABLET BY MOUTH EVERY 8 HOURS NEEDED FOR PAIN cyclobenzaprine 5 mg tablet 5 mg PO BID PRN Patient Comments: TAKE ONE TABLET BY MOUTH TWICE A DAY NEEDED FOR MUSCLE SPASMS Medical Decision Making 1515?63-year-old female with history of smoking, TIA, hypertension, sent by her naturopathic provider with concern for elevated troponin. Patient is 18 days status post lumbar discectomy and fusion. She experienced what sounds like a brief syncopal episode 2 days ago. She has no chest pain or shortness of breath at this time. She is saturating well in no respiratory distress. She is hypertensive concern for arrhythmia versus pulmonary embolism versus less likely ACS. Screening EKG was reviewed and interpreted by me: Please see report, sinus rhythm 95 bpm, prolonged FL interval of 255. LVH. Will repeat troponin. Will obtain CT of the chest. 1623 --initial troponin negative. CT of the chest pending. Lab Data Lab results reviewed: Yes I reviewed the patient's lab results. Labs: Laboratory Tests Range/Units 02/13/ 14:55 WBC (4.4-10.8) 10^3/uL 10.86 H RBC (3.93-5.22) 10^6/uL 4.77 Hgb (11.2-15.7) g/dL 14.2 Hct (36.0-46.0) % 43.0 MCV (80-95) fL 90 MCH (27.0-33.0) pg 29.8 MCHC (32.0-36.0) % 33.0 RDW (11.7-14.6) % 12.8 Plt Count (130-400) 10^3/uL 420 H MPV (8.0-11.0) fL 10.1 Immature Gran % 0.3 Neutrophils % 63.4 Lymphocytes % 22.2 Monocytes % 6.1 Eosinophils % 6.8 Basophils % 1.2 Nucleated RBC % (0.0-0.3) % 0.0 Absolute Neutrophils (1.2-6.7) 10^3/uL 6.89 H Absolute Lymphocytes (1.2-3.4) 10^3/uL 2.41 Absolute Monocytes (0.1-0.8) 10^3/uL 0.66 Absolute Eosinophils (0.0-0.7) 10^3/uL 0.74 H Absolute Basophils (0.0-0.2) 10^3/uL 0.13 Sodium (136-145) mmol/L 139 Potassium (3.5-5.1) mmol/L 4.0 Chloride (98-107) mmol/L 102 Carbon Dioxide (21.0-32.0) mmol/L 27.4 Anion Gap (3-11) mmol/L 9.6 BUN (7-18) mg/dL 17 Creatinine (0.55-1.02) mg/dL 0.9 Est GFR (CKD-EPI 2020) (mL/min/1.73m2) 70.95 Glucose (74-106) mg/dL 108 H Calcium (8.5-10.1) mg/dL 9.6 Magnesium (1.8-2.4) mg/dL 2.0 Total Bilirubin (0.2-1.0) mg/dL 0.3 AST (15-37) U/L 20 ALT (14-59) U/L 24 Alkaline Phosphatase (46-116) U/L 108 Troponin I (<or=60) ng/L < 50 Total Protein (6.4-8.2) g/dL 8.1 Albumin (3.4-5.0) g/dL 3.8 HPI General Mode of arrival: ambulatory . Date/Time Provider Initiated Documentation: 02/13/23 14:31 . Limitations to Documentation: no limitations . Information obtained by: patient . HPI Narrative: 63-year-old female with history of chronic smoking, TIA, hyper pretension, recent lumbar discectomy and fusion performed on 01/26/2023, presents today 2 days status post fall with concern for brief syncope at the prompting of her naturopathic provider who had ordered labs including troponin and D-dimer, both of which were found to be elevated today. Patient denies symptoms at this time other than postoperative lower back pain. She has no chest pain or shortness of breath. No dizziness. No leg swelling or calf pain. Related Data Home Medications Medication Instructions Recorded Confirmed ascorbate calcium (vitamin C) 500 500 mg PO BID 02/26/22 02/13/23 mg tablet bergamot extract 500 mg capsule 2 mg PO DAILY 02/26/22 02/13/23 cholecalciferol (vitamin D3) 50 50 mcg PO DAILY 12/12/22 02/13/23 mcg (2,000 unit) capsule glucosamine sulfate 500 mg tablet 500 mg PO BID 12/12/22 02/13/23 (Glucosamine) magnesium 200 mg tablet 200 mg PO BID 12/12/22 02/13/23 nottokinase plus PO BID 12/12/22 turmeric (bulk) 95 % powder pwd miscellaneous 12/12/22 (Curcumin) acetaminophen 325 mg tablet 975 mg PO TID PRN 02/13/23 02/13/23 cyclobenzaprine 5 mg tablet 5 mg PO BID PRN 02/13/23 02/13/23 hydromorphone 2 mg tablet 2 mg PO Q8H PRN 02/13/23 02/13/23 Allergies Allergy/AdvReac Type Severity Reaction Status Date / Time codeine Allergy Intermediate itchy rash Verified 02/13/23 14:34 oxycodone Allergy Intermediate Uncoded 02/13/23 14:34 General Stated Complaint: GenMedical MARK: 3 Review of Systems Constitutional Constitutional: Denies fever(s) Cardiovascular Cardiovascular: Denies chest pain and Denies dyspnea Respiratory Respiratory: Denies cough and Denies dyspnea PFSH Social History Smoking/Tobacco Use Status: Current every day Tobacco Type: cigarettes Smoking risk assessment performed?: Yes Alcohol Intake: never Drug use: Daily Substance use type: marijuana Current gender identity: female Do you feel safe at home: Yes Do you feel safe in your relationship?: Yes Exam Const General: cooperative and no acute distress HENMT Mouth: moist mucous membranes Eyes Conjunctivae: normal conjunctivae Sclera: normal sclerae Neck Neck: trachea midline Resp Auscultation: clear to auscultation bilaterally, no rales, no rhonchi and no wheezes Cardio Rhythm: regular rhythm GI Palpation: soft, not firm, no guarding, no masses, not rigid and nontender Skin General skin exam: no rashes or lesions noted Neuro General: patient alert, patient awake and tone normal Extrem General: no calf tenderness and no edema Psych Appearance: grossly normal Mental Status: mental status grossly normal Course Vital Signs Vital signs: Vital Signs Temperature 36.4 C L 02/13/23 14:32 Pulse 104 H 02/13/23 14:32 Respiratory Rate 20 02/13/23 14:32 Blood Pressure 179/99 H 02/13/23 14:32 Pulse Oximetry 97 02/13/23 14:32 Temperature 36.4 C L 02/13/23 14:32 Temperature Source Skin 02/13/23 14:32 Pulse 104 H 02/13/23 14:32 Respiratory Rate 20 02/13/23 14:32 Respiratory Effort Normal, Non-Labored 02/13/23 14:33 Blood Pressure 179/99 H 02/13/23 14:32 Blood Pressure Position Sitting 02/13/23 14:32 Pulse Oximetry 97 02/13/23 14:32 Oxygen Delivery Method Room Air 02/13/23 14:32 Oxygen Flow Rate 0 02/13/23 14:32 Pain Level 4 02/13/23 14:32
[2023-02-13 15:25] LABS: ALT 24 U/L (14-59); AST 20 U/L (15-37); Albumin 3.8 g/dL (3.4-5.0); Alkaline Phosphatase 108 U/L (46-116); Anion Gap 9.6 mmol/L (3-11); BUN 17 mg/dL (7-18); Bilirubin, Total 0.3 mg/dL (0.2-1.0); CO2 27.4 mmol/L (21.0-32.0); CREATININE 0.9 mg/dL (0.55-1.02); Calcium 9.6 mg/dL (8.5-10.1); Chloride 102 mmol/L (98-107); Estimated GFR 70.95 (mL/min/1.73m2); Glucose 108 mg/dL (74-106); Sodium 139 mmol/L (136-145); Total Protein 8.1 g/dL (6.4-8.2); Troponin I < 50 ng/L (<or=60)
[2023-02-13] MEDS: Normal Saline - Diluent 50 ML VIAL IJ (15:54)
[2023-02-13] MEDS: Omnipaque 350 MG/ML 100 ML BTL IJ (15:55)
[2023-02-13] MEDS: Normal Saline Flush 10 ML SYR IVP (15:56)
--- NOTE | 2023-02-13 17:30 | DI.CT_ITS ---
Exam(s) CT HEAD WO EXAM: CT HEAD WO CLINICAL HISTORY: fall on Thursday with worsening headache. TECHNIQUE: Imaging Protocol: Axial computed tomography images with coronal and sagittal reformatted images were created and reviewed COMPARISON: No exams were available for comparison FINDINGS: There are no skull fractures. There is almost complete opacification left maxillary sinus, including some fluid. Right maxillary sinus is clear. Sphenoid and frontal sinuses are clear as are the ethmo idal air cells. There are no effusions in the mastoid air cells. There is no evidence of intracranial hemorrhage, mass effect, or shift of midline structures. There are no extra-axial fluid collections. The ventricles are not enlarged or shifted and there is no blo od within the ventricular system nor within the basal cisterns. Intracranial arteries appear somewhat more dense than typical. IMPRESSION: No acute intracranial hemorrhage, as per request. Somewhat denser than typical vessels in the brain, of questionable significance. Report called by myself to ER physician RADIATION DOSE DELIVERED: Total DLP DATA REPOSITORY: All CT scans at this facility are submitted to the National Radiology Data Registry (NRDR) Dose Index Registry (DIR) with the [employer] (ACR). RADIATION OPTIMIZATION: All CT scans at this facility use at least one of these dose optimization te chniques: automated exposure control; mA and/or kV adjustment per patient size (includes targeted exa ms where dose is matched to clinical indication); or iterative reconstruction.
[2023-02-13] MEDS: Acetaminophen 500 MG TAB 1000 MG PO (17:48)
[2023-02-13 18:18] LABS: Troponin I < 50 ng/L (<or=60)
--- NOTE | 2023-02-13 18:23 | DI.VRAD_ITS ---
PROCEDURE INFORMATION: Exam: CT Head Without Contrast Exam date and time: 02/13/2023 5:48 PM Age: 63 years old Clinical indication: Injury or trauma; Other: Fall on Thursday with worsening headache TECHNIQUE: Imaging protocol: Computed tomography of the head without contrast. COMPARISON: No relevant prior studies available. FINDINGS: Brain: Normal. No hemorrhage. Unremarkable white matter. No mass effect. Cerebral ventricles: No ventriculomegaly. Paranasal sinuses: Moderate amount of fluid throughout the left maxillary sinus. Paranasal sinuses are otherwise clear. Mastoid air cells: Visualized mastoid air cells are well aerated. Bones/joints: Unremarkable. No acute fracture. Soft tissues: Unremarkable. IMPRESSION: Left maxillary sinusitis. Dictated and Authenticated by: Que Israel MD. Ordering:INDER Nieto MD
--- NOTE | 2023-02-13 18:59 | W.EDPROG ---
Date of service: 02/13/23 Time of Service: 18:59 Medical Decision Making Patient signed out to me pending CT chest results and repeat troponin. She began complaining of worsening head discomfort and reports striking the back of her head when she fell on Thursday. She states that her head just does not seem right. She is neurologically intact. Head CT ordered by me. Patient CTA chest unremarkable per radiology read. CT head also negative for any acute traumatic injury. Second troponin remains flat. Patient may be discharged home to follow-up with her physician. May wish to consider outpatient monitoring with either Holter monitor or Zio patch. Return precautions provided. Discharged doing the paperwork as we speak Sign Out Sign Out Data: Sign Out Comment: Follow-up on CT of the chest and delta troponin. Last updated by Lev Talavera MD at 02/13/23 16:27 Discharge Plan Disposition Patient Disposition: Home Condition: Good Discharge Details Clinical Impression: Elevated d-dimer, Fall Primary Care Provider: Unknown,Unknown ED Provider: Gerson [facility] and New Rx's Prescriptions: Continued ascorbate calcium (vitamin C) 500 mg tablet 500 mg PO BID bergamot extract 500 mg capsule 2 mg PO DAILY Hold Instructions: on hold due to recent surgery Curcumin 95 % powder miscellaneous cholecalciferol (vitamin D3) 50 mcg (2,000 unit) capsule 50 mcg PO DAILY nottokinase plus PO BID glucosamine sulfate [Glucosamine] 500 mg tablet 500 mg PO BID Rx Instructions: administer with meals magnesium 200 mg tablet 200 mg PO BID acetaminophen 325 mg tablet 975 mg PO TID PRN Patient Comments: TAKE THREE TABLETS BY MOUTH EVERY 8 HOURS NEEDED FOR PAIN hydromorphone 2 mg tablet 2 mg PO Q8H PRN Patient Comments: TAKE ONE TABLET BY MOUTH EVERY 8 HOURS NEEDED FOR PAIN cyclobenzaprine 5 mg tablet 5 mg PO BID PRN Patient Comments: TAKE ONE TABLET BY MOUTH TWICE A DAY NEEDED FOR MUSCLE SPASMS Discharge Instructions Additional Instructions: You were seen in the ED after a fall/syncopal event at home on Thursday. You had abnormal labs which have been followed up on. There is no evidence of a blood clot on your chest CT. Your troponins here are normal as is your other laboratory studies. CT scan of your head shows no evidence of traumatic injury. You should follow-up with primary care and consider outpatient monitoring with Holter monitor or Zio patch. Return to ED for any severe worsening headache, recurrent syncope, neurologic change, chest pain, shortness of breath.
== END 2023-02-13 19:11 | disposition home or self-care (01) ==
PROVIDERS: Student in an Organized Health Care Education/Training Program; Emergency Provider Emergency Medicine
DX: R79.89 Other specified abnormal findings of blood chemistry (principal); R94.31 Abnormal electrocardiogram [ECG] [EKG]; I10 Essential (primary) hypertension; F17.210 Nicotine dependence, cigarettes, uncomplicated; Z86.73 Personal history of transient ischemic attack (TIA), and cerebral infarction without residual deficits; Z98.1 Arthrodesis status
CPT/HCPCS: 00123; 71275; 80053; 93005; 99285; 70450; 83735; 84484; 85025; 93010; 99284; J3490

== ENCOUNTER 2023-12-15 10:09 | Outpatient (CLI) | payer MEDICARE, MEDICAID, SELFPAY | END 2023-12-15 10:10 | disposition home or self-care (01) | LOC: DI.KIM 10:09 | PROVIDERS: PCP Nurse Practitioner; Visit Provider Nurse Practitioner | CPT/HCPCS: 93010 ==

== ENCOUNTER 2024-01-14 03:52 | Outpatient (CLI) | payer MEDICARE, MEDICAID, SELFPAY ==
--- NOTE | 2024-01-17 15:46 | TELEFU_ITS ---
Date of service: 01/14/24 Time of Service: 10:00 Nutrition Note NOTE: Darrian comes in for referred nutrition visit regarding diabetes education/mgt - new dx of diabetes. 12/14 LDL was 178. No current diabetes medications at home - patient hesitant to initiate medication therapy (also not too keen on considering statin at this time). States she uses Reiki for healing and with diet and lifestyle modifications, plans on talking with her pancreas to encourage better functioning. Darrian demonstrated lower knowledge of nutrition concepts and classification of foods. We reviewed some education materials to try and review bull concepts for carb management. Reviewed her recommendations for kcals, total carbs, fat and protein. Highlighted importance of planning days of eating around ~150g total carbs and reviewed sources and serving sizes. Also highlighted choosing options less ref ined for more fiber and nutrition. Emphasized plate method set up if all else fails and going large on non-starchy veggies and lean protein and smaller portions of starch. Reviewed added sugar and ~1tsp=4g carbohydrate. She drinks Bethel tea often with tsp sugar in each cup - reviewed how to account for this in carb total. Pt brought in diet recall and thanked her for logging. Reviewed total carb estimate on each day with attention given to portion size of things like nava rice, pizza (as 1 slice can be 2-3 carb servings). Usual diet, based on 7 days diet recall, is assessed as low in protein and fiber most days. Encouraged Darrian to aim for about 10 carb servings per day of quality choices high in fiber, minimally processed. Gave my card to contact if desiring further collaboration in diet modification, glucose mgt. Encouraged to consider medication therapy along with lifestyle choices and talking to provider more about it as she considers. Time Spent in Nutritional Counseling and Treatment: 55 minutes
== END 2024-01-14 03:53 | disposition home or self-care (01) ==
LOC: DS 03:52
PROVIDERS: PCP Nurse Practitioner; Visit Provider Dietitian, Registered
DX: E11.9 Type 2 diabetes mellitus without complications (principal)
CPT/HCPCS: 00123; 97802

== ENCOUNTER → 2024-03-17 10:26 | Outpatient (BNVA) | payer MEDICARE, MEDICAID, SELFPAY | PROVIDERS: PCP Nurse Practitioner; Referring Provider Nurse Practitioner; Visit Provider Student in an Organized Health Care Education/Training Program | DX: M70.61 Trochanteric bursitis, right hip (principal); M70.62 Trochanteric bursitis, left hip; M16.11 Unilateral primary osteoarthritis, right hip | CPT/HCPCS: 99215 ==

== ENCOUNTER → 2024-06-16 10:24 | Outpatient (BNVA) | payer MEDICARE, MEDICAID, SELFPAY | PROVIDERS: PCP Nurse Practitioner; Referring Provider Nurse Practitioner | DX: M16.11 Unilateral primary osteoarthritis, right hip (principal); M70.61 Trochanteric bursitis, right hip; M70.62 Trochanteric bursitis, left hip; M43.16 Spondylolisthesis, lumbar region; M53.3 Sacrococcygeal disorders, not elsewhere classified | CPT/HCPCS: 99213 ==

== ENCOUNTER → 2024-08-01 14:13 | Outpatient (BNVA) | payer MEDICARE, MEDICAID, SELFPAY | PROVIDERS: PCP Family Medicine; Referring Provider Family Medicine; Visit Provider Student in an Organized Health Care Education/Training Program ==

== ENCOUNTER 2024-09-14 02:01 | Outpatient (CLI) | payer MEDICARE, MEDICAID, SELFPAY ==
--- NOTE | 2024-09-14 07:00 | DI.MRI_ITS ---
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 TECHNIQUE: Multiplanar multisequence MRI of the Lumbar spine was performed. COMPARISON: CT CT LUMBAR SPINE WO from 10/21/[address] CHEST PE CTA from 02/13/2023 CR XR HIP 1 VIEW WITH ORTHOPELVIS RIGHT from 10/13/2023 FINDINGS: Bones: The last intervertebral disc space is designated the L5/S1 level for the numbering purpose of this examination. The vertebral body heights are well maintained. There is again seen grade 1 anterolisthesis of L4 on L5. The patient is now status post laminectomy at L4 and posterior spinal surgery at L4- L5. The signal characteristics are unremarkable. Cord: It is of normal size and signal intensity. T12-L1: No disc herniations or bulges are present. No central spinal canal or neural foraminal stenosis. L1-2: No disc herniations or bulges are present. No central spinal canal or neural foraminal stenosis. L2-3: No disc herniations or bulges are present. No central spinal canal or neural foraminal stenosis. L3-4: There is a diffuse disc bulge and a left paracentral disc herniation. There may be left lateral recess stenosis and compression of the left L4 nerve root. There are degenerative changes of the facets with hypertrophy of the ligamentum flavum. This all contribute to cause [id number] central spinal canal stenosis. There is mild bilateral neural foraminal stenosis present. L4-5: No disc herniations or bulges are present. No central spinal canal or neural foraminal stenosis. L5-S1: No disc herniations or bulges are present. There are degenerative changes of the facets, left greater than right.No significant central spinal canal or neural foraminal stenosis is present. Soft tissues: The visualized SI joints and sacrum are well maintained. The paraspinal soft tissues are unremarkable. IMPRESSION: 1. At L3-L4, there is a diffuse disc bulge and a left paracentral disc herniation. There does appear to be left lateral recess stenosis with compression possibly of the left L4 nerve root. 2. Degenerative changes seen at L3-L4 contributing to cause [id number] central spinal canal and mild bilateral neural foraminal stenosis. 3. Interval L4 laminectomy and posterior spinal chance placement surgery. 4. Stable grade 1 anterolisthesis of L4 on L5. DATA REPOSITORY:
== END 2024-09-14 02:21 ==
PROVIDERS: PCP Nurse Practitioner; Visit Provider Family Medicine
DX: M54.42 Lumbago with sciatica, left side (principal); G89.29 Other chronic pain
CPT/HCPCS: 72148